=== PATIENT | male | born 1990 | race Hispanic/Latino ===

== ENCOUNTER 2022-09-27 23:35 | Emergency (ER) | payer OTHER ==
[~2022-09-27] VITALS: Ht 170.2 cm; Wt 83.9 kg
[2022-09-27 23:37] VITALS: BP 159/92
[2022-09-28] MEDS ORDERED: AZITHROMYCIN 250 MG TABLET PO ONE
[2022-09-28] MEDS ORDERED: CEFTRIAXONE 1G VIAL IM ONE
[2022-09-28 00:08] LABS: APPEARANCE,URINE CLEAR (CLEAR); BILIRUBIN,URINE NEGATIVE (NEGATIVE); COLOR,URINE LIGHT-YELLOW (YELLOW); GLUCOSE, URINE (UA) NEGATIVE (NEGATIVE); KETONES,URINE NEGATIVE (NEGATIVE); LEUKOCYTE ESTERASE ,URINE NEGATIVE Leu/uL (NEGATIVE); NITRATE,URINE NEGATIVE (NEGATIVE); OCCULT BLOOD,URINE NEGATIVE (NEGATIVE); PH,URINE 7.5 (5.0-8.0); PROTEIN,URINE NEGATIVE (NEGATIVE); UROBILINOGEN,URINE 0.2 mg/dL (0.2-1.0)
[2022-09-28 00:10] LABS: BACTERIA,URINE RARE /HPF (None Seen)
== END 2022-09-28 00:31 | disposition home or self-care (01) ==
LOC: EDH 23:35
DX: A64 Unspecified sexually transmitted disease (principal)
CPT/HCPCS: 99283; 87088; 81001; 96372; J0696